=== PATIENT | male | born 1945 | race Caucasian/White ===

== ENCOUNTER 2020-08-01 15:00 | Emergency (ER) | payer OTHER ==
[~2020-08-01] VITALS: Ht 182.9 cm; Wt 75.0 kg
[2020-08-01 15:44] VITALS: Ht 182.9 cm; Wt 75.0 kg
[2020-08-01] MEDS ORDERED: LOPRESSOR25 MG PO (15:51)
[2020-08-01] MEDS ORDERED: MOBIC7.5 MG (15:52)
[2020-08-01] MEDS ORDERED: ULTRAM50 MG PO (15:52)
[2020-08-01 16:31] LABS: BASOPHILS 0.3 % (0-2); EOSINOPHILS 0.8 % (0-7); HEMATOCRIT 45.8 % (42.0-54.0); HEMOGLOBIN 15.5 g/dL (13.5-17.5); IMMATURE GRANULOCYTES 0.1 % (0-5); LYMPHOCYTE ABS# 1.65 10x3/uL (1.32-3.57); LYMPHOCYTES 22.8 % (15-50); MCH 31.1 pg (26.0-34.0); MCHC 33.8 g/dL (31.0-37.0); MCV 91.8 fL (80.0-100.0); MEAN PLATELET VOLUME 10.8 fL (7.4-10.4); MONOCYTES 20.3 % (2-11); NEUTROPHIL ABS# 4.02 10x3/uL (1.78-5.38); NEUTROPHILS 55.7 % (40-80); PLATELET COUNT 179 10x3/uL (130-400); RBC 4.99 10x6/uL (4.20-6.10); RDW 13.1 % (11.5-14.5); WBC 7.2 10x3/uL (4.8-10.8)
[2020-08-01 17:03] LABS: CALC OSMOLALITY 273 mosm/kg (275-300); CALCIUM 9.4 mg/dL (8.5-10.1); CARBON DIOXIDE 29.5 mmol/L (21.0-32.0); CHLORIDE - SERUM 99 mmol/L (98-107); CREATININE - SERUM 0.7 mg/dL (0.6-1.3); GLUCOSE 98 mg/dL (74-106); POTASSIUM - SERUM 5.3 mmol/L (3.5-5.1); SODIUM 136 mmol/L (136-145); UREA NITROGEN 19 mg/dL (7-18); eGFR NON AFRICAN AMERICAN > 90 mL/min (90-120)
[2020-08-01 17:28] LABS: ALBUMIN 3.7 g/dL (3.4-5.0); ALKALINE PHOSPHATASE 93 U/L (30-120); ALT (SGPT) 38 U/L (10-68); CREATINE KINASE 239 UL (21-232); PROTEIN - SERUM 7.4 g/dL (6.4-8.2); TROPONIN-I < 0.017 ng/mL (0.000-0.060)
[2020-08-01 17:29] LABS: CKMB 15.8 U/L (0.0-3.6)
[2020-08-01 19:32] LABS: BILIRUBIN NEGATIVE (NEGATIVE); KETONE SMALL mg/dL (NEGATIVE); NITRITE NEGATIVE (NEGATIVE); UROBILINOGEN NORMAL mg/dL (< 2)
[2020-08-02 00:24] VITALS: BP 144/90
== END 2020-08-01 21:25 | disposition home or self-care (01) ==
LOC: D.ER 15:00
PROVIDERS: Emergency Medicine
DX: M54.5 Low back pain (principal); R53.1 Weakness; G35 Multiple sclerosis